=== PATIENT | female | born 1995 | race Caucasian/White ===

== ENCOUNTER 2024-09-29 13:28 | Outpatient (CLI) | payer OTHER, SELFPAY ==
--- NOTE | ~2024-09-29 | XR_ITS ---
EXAMINATION: XR chest 2V DATE: 09/29/2024 13:53 INDICATION: Positive TB test TECHNIQUE: PA and lateral views of the chest were obtained. COMPARISON: None FINDINGS: The lungs are clear with no focal airspace opacities, pulmonary edema, pleural effusion or pneumothorax. The cardiomediastinal silhouette is normal. Chronic appearing mild anterior wedging at T12. IMPRESSION: 1. Clear lungs with no acute cardiopulmonary disease. Reviewed, dictated and finalized at location A.
--- OUTSIDE RECORDS SUMMARY | 2024-09-29 14:00 | XMS_ITS | Clinical Summary ---
Author Organization [facility] Address [address] [place] [address] Care Team Providers Care Electrical Controls Technician Name Role Phone Harvey Ackerman MD Unavailable + [phone] Anthony Roa MD Primary Care Provider [phone]- [phone] Allergies Active Allergy Reactions Criticality Noted Date Comments Sulfa (Sulfonamide Antibiotics) Other (See comments) Low 06/01/2019 Makes patient shakey Hydrocodone-Acetamin ophen Nausea & Vomiting Low 06/01/2019 unknown Medications Vitamin Plus Low Iron 27 mg iron- 1 mg tablet 03/05/2019 Active acetaminophen (TYLENOL) 500 mg tablet Take one tab orally every 4 hours as needed for pain. 12/28/2023 Active ibuprofen (ADVIL,MOTRIN) 200 mg tab/capIndicatio ns:Cramps Take 2 tabs orally every 4 hours as needed for pain. 12/28/2023 Active Active Problems Problem Noted Date Diagnosed Date Post-dates 12/27/2023 40 weeks gestation of 12/25/2023 Immunizations Immunization Administration Dates Next Due MMR 06/06/2019(Deferred: Contraindic ation) Tdap 06/06/2019(Deferred: Contraindic ation) Medical History Medical History Date Comments Mental disorder borderline Perso nality disorder GERD (gastroesophageal reflux disease) Social History Tobacco Use Types Packs/Day Years Used Date Smoking Tobacco: Every Day Vaping Started: 2019 Passive Smoke Exposure: Never Smokeless Tobacco: Never Tobacco Cessation:Ready to Q uit: No; Counseling Given: Yes Alcohol Use Standard Drinks/Week Comments Never 0 (1 standard drink = 0.6 oz pur e alcohol) [facility] Utilities Answer Date Recorded In the past 12 months has th e electric, gas, oil, or water [employer] threatened to shut off services in your home? No 12/26/2023 Humiliation, Afraid, Rape, and Kick questionnair e Answer Date Recorded Within the last year, have y ou been afraid of your partner or ex-partner? No 12/26/2023 Within the last year, have y ou been humiliated or emotionally abused in other ways by your partner or ex-partner? No Within the last year, have y ou been kicked, hit, slapped, or otherwise physically hurt by your partner or ex-partner? No 12/26/2023 Within the last year, have y ou been raped or forced to have any kind of sexual activity by your partner or ex-partner? No 12/26/2023 Social Connection and Isolation Panel Answer Date Recorded In a typical week, how many times do you talk on the phone with family, friends, or neighbors? More than three times a week 12/26/2023 How often do you get togethe r with friends or relatives? Once a week 12/26/2023 How often do you attend chur ch or buddhism services? Never 12/26/2023 Do you belong to any clubs o r organizations such as anabaptism groups, unions, fraternal or athletic groups, or school groups? No 12/26/2023 How often do you attend meet ings of the clubs or organizations you belong to? Never 12/26/2023 Are you , , di vorced, , never , or living with a partner? 12/26/2023 AUDIT-C Answer Date Recorded Q1: How often do you have a drink containing alc ohol? Monthly or less 12/26/2023 Q2: How many drinks containi ng alcohol do you have on a typical day when you are drinking? 1 or 2 12/26/2023 Q3: How often do you have si x or more drinks on one occasion? Never 12/26/2023 Overall Financial Resource Strain (CARDIA) Answe r Date Recorded How hard is it for you to pa y for the very basics like food, housing, medical care, and heating? Somewhat hard 12/26/2023 PHQ-2 Answer Date Recorded PHQ-2 Total Score 0 12/26/2023 [place] [employer] - Occupational Stress Questionnaire Answer Date Recorded Do you feel stress - tense, restless, nervous, or anxious, or unable to sleep at night because your mind is troubled all the time - these days? Not at all 12/26/2023 Exercise Vital Sign Answer Date Recorde d On average, how many days pe r week do you engage in moderate to strenuous exercise (like a brisk walk)? 4 days 12/26/2023 On average, how many minutes do you engage in exercise at this level? 40 min 12/26/2023 Hunger Vital Sign Answer Date Recorded Within the past 12 months, y ou worried that your food would run out before you got the money to buy more. Never true 12/26/19 24 Within the past 12 months, t he food you bought just didn't last and you didn't have money to get more. Never true 12/26/2023 PRAPARE - Transportation Answer Date Re corded In the past 12 months, has l ack of transportation kept you from medical appointments or from getting medications? No 12/11 In the past 12 months, has l ack of transportation kept you from meetings, work, or from getting things needed for daily living? No 12/26/2023 [place] Depression Scale Answer Date Recorded [place] Depression Scale Total 1 12/26/2023 The thought of harming myself has occurred to me . Never 12/26/2023 Housing Stability Vital Sign Answer Mike e Recorded In the last 12 months, was t here a time when you were not able to pay the mortgage or rent on time? No 12/26/2023 In the past 12 months, how m any times have you moved where you were living? 0 12/26/2023 At any time in the past 12 m onths, were you homeless or living in a [facility] (including now)? No 12/26/2023 Personal Safety Answer Date Recorded Have you ever been in or are you currently in a harmful physical or emotional relationship or is someone making you feel afraid or unsafe? Denies 12/25/2023 Comments No Sex and Gender Information Value Date Recorded Sex Assigned at Not on file Legal Sex Female 6:42 PM [employer] Gender Identity Not on file Sexual Orientation Not on file Obstetrics History Para Term AB IAB SAB Ectopic Multiple Livin g Live Births 2 2 2 0 2 2 Date Outcome GA Total Labor Labor/2nd/3rd Weight Sex Type Anes PTL Maday A1 A5 Name Clin 2019 Term 40w 1d 11h 12m 10h 27m/0h 43m/0h 02m 2.725 kg (6 lb 0.1 oz) F Vag-Sp ont Epidur al N Livin g 7 9 LONG ON,GI RLBRI Harvey Caruso MD Complications:Shoulder Dysto rae Delivery [facility]) 2023 Term 40w 5d 3h 08m 2h 58m/0h 06m/0h 04m 3.353 kg (7 lb 6.3 oz) M Vagina l Spinal N Livin g 7 9 Alari c Arian Benavides MD Delivery Location:[facility]) Last Filed Vital Signs Vital Sign Reading Time Taken Comments Blood Pressure 136/72 12/28/2023 8:55 AM [employer] Pulse 87 12/28/2023 8:55 AM [employer] Temperature 36.4 C (97.6 F) 12/28/2023 8:55 AM [employer] Respiratory Rate 16 12/28/2023 8:55 AM [employer] Oxygen Saturation 98% 12/26/2023 11:06 PM [employer] Inhaled Oxygen Concentration - - Weight - - Height - - Body Mass Index - - Plan of Treatment Health Maintenance Due Date Last Done Comments Cervical Cancer Screening 1995 Hepatitis C Screening 1995 Regular Well Visit/Exam 18-64 2013 Pneumococcal vaccine <65 (1 of 2 - PCV) 2014 DTaP/Tdap/Td Vaccine (7 - Td or Tdap) 03/17/2019 03/17/2009, 04/09/2000, 09/29/1996, Additional history exists Influenza Vaccine (#1) 2024 03/17/2009 Depression Screening 12/25/2024 12/26/2023, 10/06/2023, 10/06/2023 Hepatitis B Screening Completed 1995 , 1995, 1995 Varicella Vaccines Completed 03/17/2009, 03/10/1996 HPV Vaccines Completed 02/10/2013, 08/11, 09/05/[address] Advance Directives For more information, please contact: [phone] * Full Code (Latest Code Status on File) Date Activated Date Inactivated Comments 12/27/2023 1:07 AM 12/28/2023 10:57 PM Full CPR in case of cardiopulmonary arrest * Full Code Date Activated Date Inactivated Comments 12/26/2023 9:29 PM 12/27/2023 1:07 AM * Full Code Date Activated Date Inactivated Comments 12/25/2023 1:42 PM 12/26/2023 9:29 PM Full CPR i n case of cardiopulmonary arrest * Full Code Date Activated Date Inactivated Comments 06/05/2019 1:02 AM 06/06/2019 9:37 PM * Full Code Date Activated Date Inactivated Comments 06/04/2019 6:29 AM 06/05/2019 1:02 AM Full CPR in case of cardiopulmonary arrest Care Teams Electrical Controls Technician Relationship Specialty Start Date End Date Anthony Roa MD [address] [place] [id number] PCP - General Family Medicine 09/17/23 Harvey Ackerman MD [address] [place] [address] [address] TIERNEY [address] [address] Guardian Ad Litem Obstetrics and Gynecology 06/06/19
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
--- OUTSIDE RECORDS SUMMARY | 2024-09-29 14:00 | XMS_ITS | Clinical Summary ---
Author Organization [facility] Address [address] [place] [address] Phone Care Team Providers Care Transportation Agent Name Role Phone Kwame Roa MD Primary Care Provider [phone] Social History Tobacco Use Types Packs/Day Years Used Date Smoking Tobacco: Never Assessed Comments Unknown Sex and Gender Information Value Date Recorded Sex Assigned at Not on file Legal Sex Female 9:37 AM CDT Gender Identity Not on file Sexual Orientation Not on file Plan of Treatment Health Maintenance Due Date Last Done Comments Hepatitis C Virus (HCV) Screening 1995 Pap Smear 2016 SARS-COV-2 Immunization ( season) 2023 Influenza Immunization (#1) 2024 03/17/2009 Respiratory Syncytial Virus (RSV) Immunization (Adult) (1 - 1-dose 75+ series) 2070 Hepatitis B Immunization Completed 996, 1995, 1995 Meningococcal Immunization (ACWY) Completed 09/05/2011, 09/05/2010 Human Papillomavirus (HPV) Immunization Completed 02/10/2013, 09/05/2011, 09/05/2010 DTaP/Tdap/Td Immunization Discontinued 2019, 03/17/2009, 04/09/2000, Additional history exists TdaP Immunization Completed 02/10/2019, 03/17/2009 Pneumococcal Immunization Combined Aged Out No longer eligible based on patient's age to complete this topic Rotavirus Immunization Aged Out No lo nger eligible based on patient's age to complete this topic Insurance MEDICAID [employer] Care Teams Transportation Agent Relationship Specialty Start Date End Date Kwame Roa MD [address] [place] [address] PCP - General Anesthesiology 05/23/23
== END 2024-09-29 13:29 | disposition home or self-care (01) ==
PROVIDERS: PCP Family Medicine; Visit Provider Family Medicine
DX: R76.11 Nonspecific reaction to tuberculin skin test without active tuberculosis (principal)
CPT/HCPCS: 71046